=== PATIENT | male | born 1940 | race Caucasian/White ===

== ENCOUNTER 2022-01-11 09:54 | Emergency (ER) | payer MEDICARE, SELFPAY ==
--- NOTE | ~2022-01-11 | XR_ITS ---
EXAMINATION: XR chest 2V DATE: 01/11/2022 10:21 INDICATION: Wheezing. TECHNIQUE: Frontal and lateral views of the chest were obtained. COMPARISON: Chest 2 views 11/08/2011 FINDINGS: There is mild scarring at the lung apices. Calcified pulmonary nodules and calcified hilar and mediastinal lymph nodes are consistent with old granulomatous disease. No pleural effusion or pne umothorax. The heart size is normal. There are old healed bilateral rib fractures. There are surgical clips in right neck. IMPRESSION: 1. Stable mild scarring at the lung apices. Reviewed, dictated and finalized at location A.
--- NOTE | 2022-01-11 09:57 | ED.URI ---
HPI - URI/Sore Throat General Chief Complaint: Upper Respiratory Infection Stated Complaint: cold chest congestion Time Seen by Provider: 01/11/22 09:57 Source: patient and RN notes reviewed History of Present Illness HPI Narrative: Patient is an 81-year-old male who presents to the Urgent Care with complaints of chest congestion and wheezing. Patient states that it started approximately 1 week ago with a cough and low-grade fevers and now he is feeling more increased fatigue with nausea. Patient denies any recent fevers. States that he has been taking DayQuil and NyQuil without much relief. No other acute complaints. No acute distress noted. Patient aware of the plan of care. Some parts of this dictation were generated by voice recognition software and may contain typographical and/or grammatical inaccuracies. Related Data Home Medications Medication Instructions Recorded Confirmed amlodipine 5 mg tablet 5 mg PO DAILY 12/06/19 01/11/22 atorvastatin 20 mg tablet 20 mg PO DAILY 12/06/19 01/11/22 clopidogrel 75 mg tablet 75 mg PO DAILY 12/06/19 01/11/22 lisinopril 20 mg tablet 20 mg PO DAILY 12/06/19 01/11/22 pantoprazole 40 mg tablet,delayed 40 mg PO QAM 12/06/19 01/11/22 release aspirin 81 mg DAILY 01/11/22 01/11/22 dicyclomine 10 mg QID PRN Abdominal Discomfort 01/11/22 01/11/22 metoprolol succinate 25 mg 25 mg PO DAILY 01/11/22 01/11/22 tablet,extended release 24 hr Allergies Allergy/AdvReac Type Severity Reaction Status Date / Time No Known Allergies Allergy Verified 01/11/22 10:11 Review of Systems Review of Systems: CONSTITUTIONAL: Denies fever, chills, or sweats. reports fatigue EYES: Denies visual changes, redness, or discharge. ENT: Denies rhinorrhea, congestion, sore throat, or otalgia. CARDIOVASCULAR: Denies chest pain, palpitations, or edema. RESPIRATORY: Reports of chest congestion, dyspnea and wheezing GASTROINTESTINAL: reports of nausea without vomiting or abdominal pain GENITOURINARY: Denies dysuria or hematuria. SKIN: Denies rash or itching. MUSCULOSKELETAL: Denies back pain, joint pain, or myalgia. NEUROLOGIC: Denies headache, numbness, or weakness. All other systems reviewed are negative, except as documented in HPI. 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 There is no relevant family history pertinent to the patient complaint. Exam Narrative: GENERAL: This is a well-nourished, well-developed patient, in no apparent distress. HEAD: normocephalic, atraumatic. EYES: PERRL. Sclera clear/white. Vision is grossly intact. EARS: External ears normal, auditory canals clear and without drainage, TMs normal without perforation. Hearing grossly intact. NOSE: External nose normal with no obvious nasal discharge, nares without redness, no rhinorrhea. THROAT: Mucous membranes moist, posterior pharynx clear. moderate postnasal drainage NECK: Neck supple, non-ten
[2022-01-11 10:15] VITALS: BP 155/75; PULSE 86; RESP 18; TEMP 36.4; O2SAT 99
== END 2022-01-11 10:54 | disposition home or self-care (01) ==
PROVIDERS: Emergency Provider Nurse Practitioner Family; PCP Physician Assistant
DX: J40 Bronchitis, not specified as acute or chronic (principal); F17.210 Nicotine dependence, cigarettes, uncomplicated; Z79.82 Long term (current) use of aspirin
CPT/HCPCS: 71046; 99213; G0463